=== PATIENT | female | born 1990 | race Caucasian/White ===

== ENCOUNTER 2024-01-10 19:21 | Inpatient (IN) | payer BC, SELFPAY ==
[2024-01-10 19:29] VITALS: BMI 42.2
[2024-01-10 19:43] VITALS: BP 139/83; PULSE 90; RESP 16; TEMP 36.5; O2SAT 97
[2024-01-10] MEDS: Lactated Ringers 1,000 ML 50 ML IV (20:00)
[2024-01-10 20:22] LABS: Absolute Lymphocyte Count 1.81 X10^3/uL (0.83-4.51); Absolute Neutrophil Count 8.4 X10^3/uL (2.0-7.7); Basophil# 0.03 X10^3/uL; Basophil% 0.3 % (0-1); Eosinophil# 0.03 X10^3/uL; Eosinophils% 0.3 % (0-5); Hematocrit 31.5 % (37-47); Hemoglobin 10.1 g/dL (12.0-15.0); Lymphocyte # 1.81 X10^3/ul (0.83-4.51); Lymphocyte % 16.6 % (19-41); Mean Corp Hgb Conc 32.1 g/dL (32-36); Mean Corpuscular Hgb 28.3 pg (27.0-32.0); Mean Corpuscular Volume 88.2 fL (81-99); Mean Platelet Vol. 10.8 fl (6.2-12.0); Monocyte# 0.66 X10^3/uL; NRBC Flagged by Analyzer 0 % (0-5); Neutrophil # 8.35 X10^3/uL (2.7-7.7); Neutrophil % 76.3 % (47-70); Platelet Count 265 K/mm3 (150-450); RBC Distribution Width CV 13.4 % (11.6-14.6); RBC Distribution Width SD 43.1 fl (35.1-43.9); Red Blood Count 3.57 M/mm3 (4.2-5.4); White Blood Count 10.9 K/mm3 (4.4-11.0)
[2024-01-10 20:54] VITALS: BP 133/86; PULSE 88; RESP 16; TEMP 36.2; O2SAT 97
[2024-01-10] MEDS: NIFEdipine 30 MG Tablet PO (20:55)
[2024-01-10] MEDS: miSOPROStol 25 MCG TABLET PO (20:55)
[2024-01-10 21:13] LABS: Syphilis Antibodies Non-reactive
[2024-01-10] MEDS: CHLORHEXIDINE GLUC 2% CLOTH 1 EACH TOWELETTE TOPICAL (21:53)
[2024-01-10 22:03] VITALS: RESP 16; TEMP 36.4
[2024-01-10 22:05] VITALS: BP 142/88; PULSE 82
[2024-01-11] VITALS (77 sets, daily range): BP systolic 106–175; BP diastolic 58–94; PULSE 70–104; RESP 16–18; TEMP 36.3–37.8; O2SAT 92–100
[2024-01-11] MEDS: Oxytocin 15 Units/NS 250ml 15 UNITS/250 ML IV.SOLN 2 UNITS IV (01:55)
[2024-01-11] MEDS: Penicillin G Pot 5,000,000 UNITS in 0.9% Normal Saline (100mL MB+) 100 ML 150 UNITS IV (07:44)
--- NOTE | 2024-01-11 08:20 | HP.PCM.OB_ITS ---
HPI - General General Date of Admission: 01/10/24 Date of Service: 01/10/24 Chief Complaint: induction of labor HPI Narrative YAKOV SEYMOUR, is a 33 F who presents 1 para 0 who presented on 01/10/2024 at 37-1/7 weeks for induction of labor due to chronic hypertension on Procardia. is complicated to date by chronic hypertension, maternal obesity, history of liver resection and history of genital herpes. She denies any vaginal bleeding or leaking of fluid. She has had good movement. Past medical history significant for liver adenoma, anxiety, chronic hypertension, genital herpes with no current outbreak, PCOS and eczema Maternal Data Information Final RADHA: 01/30/24 Gestational age: 37 1/7 [facility] Medical History (Updated 01/11/24 @ 08:[address] Charito Capellan MD) History of blood transfusion Genital herpes affecting Infertility Liver disease Anxiety Chronic hypertension Home Medications ?Medication ?Instructions ?Recorded ?Last Taken ?Type aspirin 81 mg capsule 81 mg PO DAILY 01/10/24 Unknown History ferrous sulfate 325 mg (65 mg 325 mg PO DAILY /anemia 01/10/24 Unknown History iron) tablet (Feosol) nifedipine 60 mg tablet,extended 60 mg PO DAILY hypertension 01/10/24 01/09/24 22:00 History release 60 mg [id number] 1 mg tab PO DAILY 01/10/24 01/09/24 22:00 History tablet 1 TAB valacyclovir 500 mg tablet 500 mg PO BID HSV 01/10/24 Unknown History Allergy/AdvReac Type Severity Reaction Status Date / Time Latex, Natural Rubber Allergy Itching Verified 01/10/24 19:31 Surgical History (Updated 01/10/24 @ 20:10 by Xochilt Doan) History of surgery Social History Smoking Status: Never smoker History Elective abortions Hx Para 0 Spontaneous abortions Hx # Term Pregnancies Ectopic pregnancies Hx # Pregnancies Multiple births # of living children ROS Constitutional Constitutional: Denies fatigue, fever(s) or malaise Eyes Eyes: Denies change in vision ENT HEENT: Denies dizziness or headache(s) Cardiovascular Cardiovascular: Denies chest pain, dyspnea or lightheadedness Respiratory/Chest Respiratory/Chest: Denies cough or dyspnea Gastrointestinal Gastrointestinal: Denies change in bowel habits Genitourinary Genitourinary: Denies burning urination or genital lesions Integumentary Integumentary: Denies rash Neurologic Neurologic: Denies confusion, dizziness, headache(s), numbness or weakness Vital Signs Vital Signs Vital Signs: 01/10/24 19:43 01/10/24 19:43 01/10/24 19:43 Temperature Temperature Source Pulse Rate 90 Respiratory Rate Blood Pressure 139/83 H BP Systolic 139 BP Diastolic 83 Pulse Ox 97 01/10/24 19:43 01/10/24 19:43 01/10/24 19:43 Temperature 97.7 F L Temperature Source Temporal Pulse Rate Respiratory Rate 16 Blood Pressure BP Systolic BP Diastolic Pulse Ox 01/10/24 20:54 01/10/24 20:54 01/10/24 20:54 Temperature Temperature Source Temporal Pulse Rate 88 Respiratory Rate Blood Pressure 133/86 H BP Systolic 133 BP Diastolic 86 Pulse Ox 01/10/24 20:54 01/10/24 20:54 01/10/24 20:54 Temperature 97.2 F L Temperature Source Pulse Rate Respiratory Rate 16 Blood Pressure BP Systolic BP Diastolic Pulse Ox 97 01/10/24 22:03 01/10/24 22:03 01/10/24 22:03 Temperature 97.6 F L Temperature Source Temporal Pulse Rate Respiratory Rate 16 Blood Pressure BP Systolic BP Diastolic Pulse Ox 01/10/24 22:05 01/10/24 22:05 01/11/24 01:26 Temperature Temperature Source Temporal Pulse Rate 82 Respiratory Rate Blood Pressure 142/88 H BP Systolic 142 BP Diastolic 88 Pulse Ox 01/11/24 01:26 01/11/24 01:26 01/11/24 01:28 Temperature 97.9 F Temperature Source Pulse Rate 79 Respiratory Rate 16 Blood Pressure BP Systolic BP Diastolic Pulse Ox 01/11/24 01:28 01/11/24 01:30 01/11/24 01:30 Temperature Temperature Source Pulse Rate 76 Respiratory Rate Blood Pressure 137/80 H BP Systolic 137 BP Diastolic 80 Pulse Ox 98 01/11/24 02:14 01/11/24 02:14 01/11/24 02:14 Temperature Temperature Source Temporal Pulse Rate 85 Respiratory Rate Blood Pressure 130/80 H BP Systolic 130 BP Diastolic 80 Pulse Ox 01/11/24 02:14 01/11/24 02:14 01/11/24 02:14 Temperature 97.8 F Temperature Source Pulse Rate Respiratory Rate 16 Blood Pressure BP Systolic BP Diastolic Pulse Ox 96 01/11/24 04:15 01/11/24 04:15 01/11/24 04:15 Temperature 97.4 F L Temperature Source Temporal Pulse Rate Respiratory Rate 16 Blood Pressure BP Systolic BP Diastolic Pulse Ox 01/11/24 04:17 01/11/24 04:17 01/11/24 04:17 Temperature Temperature Source Pulse Rate 85 Respiratory Rate Blood Pressure 127/68 H BP Systolic 127 BP Diastolic 68 Pulse Ox 95 01/11/24 05:06 01/11/24 05:06 01/11/24 05:06 Temperature Temperature Source Temporal Pulse Rate 79 Respiratory Rate 16 Blood Pressure BP Systolic BP Diastolic Pulse Ox 01/11/24 05:06 01/11/24 05:06 01/11/24 05:07 Temperature 98.4 F Temperature Source Pulse Rate Respiratory Rate Blood Pressure 120/85 H BP Systolic 120 BP Diastolic 85 Pulse Ox 95 01/11/24 05:07 01/11/24 06:27 01/11/24 06:27 Temperature Temperature Source Pulse Rate 81 81 Respiratory Rate Blood Pressure BP Systolic BP Diastolic Pulse Ox 97 01/11/24 06:28 01/11/24 06:28 01/11/24 06:28 Temperature Temperature Source Temporal Pulse Rate 82 Respiratory Rate Blood Pressure 128/82 H BP Systolic 128 BP Diastolic 82 Pulse Ox 01/11/24 06:28 01/11/24 06:28 01/11/24 07:28 Temperature 97.7 F L Temperature Source Pulse Rate Respiratory Rate 16 Blood Pressure 134/89 H BP Systolic 134 BP Diastolic 89 Pulse Ox 01/11/24 07:28 01/11/24 07:28 01/11/24 07:28 Temperature Temperature Source Temporal Pulse Rate 91 Respiratory Rate 16 Blood Pressure BP Systolic BP Diastolic Pulse Ox 01/11/24 07:28 Temperature 97.8 F Temperature Source Pulse Rate Respiratory Rate Blood Pressure BP Systolic BP Diastolic Pulse Ox Weight Weight: 108.182 kg Body Mass Index (BMI) 42.2 Physical Exam Const alert and no apparent distress General Appearance: cooperative HEENT normocephalic Resp normal respiratory effort Cardio regular rate GI soft to palpation GI Narrative: gravid, nontender, appropriate for gestational age Extremity no calf tenderness General Extremity: edema Skin no wounds Rashes: No rashes noted Psych activity/motor behavior normal Labs Labs Labs: Blood Type AB POSITIVE Antibody Screen NEGATIVE Hct 31.5 % (37-47) L Hgb 10.1 g/dL (12.0-15.0) L Syphilis Total Ab Non-reactive Assessment & Plan (1) 37 weeks gestation of : (2) High-risk in third trimester: (3) Nulliparity: (4) Chronic hypertension in obstetric context, antepartum: (5) Maternal obesity syndrome in third trimester: (6) BMI 40.0-44.9, adult: (7) Genital herpes affecting in third trimester:
[2024-01-11] MEDS: Ondansetron 4 MG/2 ML Vial IV (08:25)
[2024-01-11] MEDS: LACTATED RINGERS 500 ML 999 ML IV ×3 (08:45→10:38)
[2024-01-11] MEDS: CHLORHEXIDINE GLUC 2% CLOTH 1 EACH TOWELETTE TOPICAL (09:00)
[2024-01-11] MEDS: fentaNYL-bupivacaine (epidural) 100 ML BAG EPIDURAL ×2 (09:48→14:17)
[2024-01-11] MEDS: Lactated Ringers 1,000 ML 200 ML IV ×2 (09:56→15:15)
[2024-01-11] MEDS: Amnioinfusion- 0.9% NS 1,000 ML IV.SOLN. 1000 ML INTRA-UTER (11:09)
[2024-01-11] MEDS: Penicillin G 3,000,000 Units 50 ML 100 UNITS IV (11:59)
[2024-01-11] MEDS: Oxytocin 15 Units/NS 250ml 15 UNITS/250 ML IV.SOLN 83 UNITS IV (15:48)
--- NOTE | 2024-01-11 16:14 | EX.PCM.OBRPT ---
Maternal Data Information Final RADHA: 01/30/24 Gestational age: 37&2 Vaginal Delivery Maternal Presentation Maternal Presentation: Medically Indicated Induction Type of Induction: Pitocin, Jack Bulb and Amniotomy Medical Reason for Induction: Maternal Medical Condition: list: (Chronic hypertension in ) Operative Information Date of Procedure: 01/11/24 Pre-Operative Diagnosis: Chronic hypertension in on medication Post-Operative Diagnosis: Same Surgery / Procedure Performed: Spontaneous Vaginal Delivery Type of Anesthesia: Epidural Estimated Blood Loss: 350ml Findings Description of Procedure: Patient prepped & draped when C/C/+2. She pushed well to deliver the head. Tight nuchal cord clamped & cut. head gently guided to allow delivery of anterior and posterior shoulders. No excess traction placed on head. Body delivered. Placenta delivered with gentle traction and good uterine tone obtained. Presentation: CANDE Amniotic Membrane Rupture Type: Artificial Amniotic Fluid Description: Clear Placental Delivery Description: Expressed Placenta Disposition: [facility] Specimen(s) Removed: Placenta Cord Vessel Description: 3 Vessels Cord Entanglement: Around neck x 1, tight Nuchal Cord Compression: With compression A Gender: Male (1 minute): 8 (5 minute): 9 Delayed Cord Clamping: No Post Vaginal Delivery Medications Given After Delivery: IV Pitocin Episiotomy Description: None Laceration: 2nd degree (perineal - repaired with 3-0 vicryl) Complication Complications: None
[2024-01-11] MEDS: Acyclovir 200 MG Capsule 400 MG PO (22:32)
[2024-01-11] MEDS: NIFEdipine 60 MG Tablet PO (22:32)
[2024-01-12] VITALS (9 sets, daily range): BP systolic 127–138; BP diastolic 63–81; PULSE 82–103; RESP 14–16; TEMP 36.2–37.2; O2SAT 91–97
[2024-01-12] MEDS: Acyclovir 200 MG Capsule 400 MG PO ×3 (06:32→22:18)
--- NOTE | 2024-01-12 08:42 | PCM.PN.OB ---
Subjective Subjective Doing well. Ambulating without difficulty. Voiding. Pain controlled. Breast feeding. BP stable on Procardia Objective Data Objective Data Vital Signs: Vital Signs Temp Pulse Resp BP Pulse Ox O2 Del Method 97.7 F L 90 16 130/81 H 95 Room Air 01/12/24 07:39 01/12/24 07:39 01/12/24 07:39 01/12/24 07:39 01/12/24 07:39 01/12/24 07:39 Oxygen Delivery Method Room Air Weight: 108.182 kg Body Mass Index (BMI) 42.2 Intake & Output: Intake and Output for Last 24 Hours 01/10/24 01/11/24 01/12/24 23:59 23:59 23:59 Intake Total 4416.17 / 4416.17 Output Total 850 / 850 500 / 500 Balance 3566.17 / 3566.17 -500 / -500 Lab / Micro Data 01/10/24 20:00 Physical Exam Const alert and no apparent distress Narrative: Fundus firm, below umbilicus. Assessment & Plan (1) (spontaneous vaginal delivery): (2) Chronic hypertension in obstetric context, antepartum: (3) BMI 40.0-44.9, adult: PLAN: Plan Routine care
--- NOTE | 2024-01-12 09:15 | CASEMGMT ---
Social Work Assessment Labor and Delivery Unit Patient Address: [address] [place] [address] Phone number: [phone] Date of Referral: 01/11/24 Time of Referral:? 1827 Referred By: Treasure Garcia Date of Intervention: ?01/12/24? Time of Intervention:? 09 Reason for Referral:? anxiety, social issues, FOB not involved Sw compelted chart review and acknowledges social work consult. Sw presented to bedside and introduced self to mother of baby (SCARLETT- Holly). Sw explained sw role during hospitalization and completed psychosocial assessment. History obtained from: medical records, MOB Household composition:SCARLETT states that she is currently residing with maternal grandma, and baby will also reside with them when ready for discharge. MOB denies any issues or concerns with housing at this time. Patient's parent/guardian status:? ?MOB reports that she and father of baby (FOB- name unknown, MOB not willing to discuss) are not in relationship, nor were they. MOB states that she really wanted to have a baby, and asked FOB if he would have a baby with her. FOB was receptive to this, MOB became . MOB states that FOB does not have any intentions of co-parenting with her and she does not expect him to. MOB denies any abuse, domestic violence or intimate partner violence. Medical History: ?SCARLETT is 33 year old female who is 1, para 0- now 1 following labor and delivery of . Educational Status:? SCARLETT completed high school and has an associates degree in [employer]. MOB denies any issues or concerns with reading, learning or comprehension. Financial Status: SCARLETT is gainfully employed at [employer], she states that she is able to take 10 weeks off of work paid. Supplies:?? SCARLETT has obtained all necessary baby supplies, including: car seat, safe sleep space, clothes, diapers and wipes. Childcare/Caregiver(s):? SCARLETT reports that she will be the primary caregiver to baby, when she needs assistance or childcare her mom will be able to help her. Transportation:?? NO barriers Programs/Agencies Involved: ???SCARLETT is not connected to any community agencies that assist her financially. SCARLETT has private insurance. Children Services/Legal Issues:?No history of involvement, no issues or concerns warranting referral to be made at this time. ?? Behavioral Health Issues: ??Mental Health History:?SCARLETT has been diagnosed with anxiety. MOB is not prescribed any medications that help her manage her symptoms. MOB states that her anxiety is mostly situational from when she was younger. MOB states that her anxiety does not impact her daily life. ?? Substance Use History:?MOB denies substance use prior to and during . ? Family History:?No family history of substance use or significant mental health diagnoses. ? Drug Screens: ??No drug screens observed during chart review. Family/Social Stressors:? SCARLETT denies any issues or concerns at this time. Support Systems: MOB identifies her mom as her biggest support person. Depression/Shaken Baby/Safe Sleeping:? Sw educated MOB on signs and symptoms of baby blues and depression. MOB expressed understanding. Maternal grandma stated that she would be able to recognize if MOB were struggling and she would know how to help and support her. Sw educated MOB on shaken baby prevention and ABCs of safe sleep. MOB expressed understanding. ASSESSMENT:? MOB and baby admitted following labor and delivery. SCARLETT was observed to have a lot of support found in her mom and her two sisters. MOB was observed providing loving and appropriate hands on care of . MOB made and maintained eye contact throughout completion of assessment. MOB states that she has everything she needs for baby PLAN:? MOB and baby to be discharged when medically ready. ?No other services requested or indicated. Doug Alvarado, INTERNATIONAL SOURCING MANAGER, CYCLE SPECIALIST
[2024-01-12] MEDS: NIFEdipine 60 MG Tablet PO (22:17)
[2024-01-13] VITALS (7 sets, daily range): BP systolic 132–159; BP diastolic 68–80; PULSE 75–91; RESP 16–18; TEMP 36.2–36.5; O2SAT 92–95
--- NOTE | 2024-01-13 08:22 | PCM.DC.SUM ---
Providers Date of Admission: 01/10/24 Primary Care Physician: Dr. Marlon Nobles MD Reason For Visit: VAGINAL Diagnosis Discharge Diagnosis (1) (spontaneous vaginal delivery): Status: Acute Code(s): O80 - Encounter for full-term uncomplicated delivery (2) Chronic hypertension in obstetric context, antepartum: Status: Acute Code(s): O10.919 - Unspecified pre-existing hypertension complicating , unspecified trimester (3) BMI 40.0-44.9, adult: Status: Acute Code(s): Z68.41 - Body mass index [BMI] 40.0-44.9, adult Medications at Discharge Home Medications ferrous sulfate 325 mg (65 mg iron) tablet (Feosol) 325 mg PO DAILY /anemia 01/10/24 nifedipine 60 mg tablet,extended release 60 mg PO DAILY hypertension 01/10/24 [id number] 1 mg tablet tab PO DAILY 01/10/24 valacyclovir 500 mg tablet 500 mg PO BID HSV 01/10/24 Hospital Course Operations None Procedures None Summary of Care Provided Minutes Spent on Discharge: 15 Hospital Course: Patient had . Hospital course was uneventful. Physical Exam Narrative Patient seen at bedside. . Ambulating and voiding without difficulty. Denies any headache, vision changes, SOB, or CP. Desires discharge home today. Const alert and no apparent distress General Appearance: cooperative and comfortable Exam Limitations: no limitations HEENT normocephalic Eyes General Eye: normal appearance of both eyes Neck full ROM General: normal visual inspection Chest Chest: symmetrical chest wall rise Resp normal respiratory effort and normal air movement Effort and Inspection: symmetric chest movement Auscultation: clear to auscultation bilaterally Cardio regular rate and regular rhythm GI normal to inspection, nondistended, normoactive bowel sounds Back/Spine normal ROM Extremity full ROM and no calf tenderness General Extremity: normal exam except as noted Skin no rashes or lesions noted Neuro CN's II-XII intact bilaterally Psych mental status grossly normal Weight / BMI Weight Weight: 238 lb 8 oz Body Mass Index (BMI) 42.2 ABG / Lab / Microbiology Data 01/10/24 20:00 D/C Instructions Discharge Diet: No restrictions May resume sexual activity in: 6-8 weeks Weight Bearing Status: Weight bearing as tolerated Call your doctor if you observe: Fever of 101 or Higher, Inability to urinate, Using more than 1 pad per hour, Shortness of breath, Chest pain, Calf discomfort and Uncontrolled pain Please Follow Up With: Esme Jeong CNM When: 2 weeks virtual visit/ 6 weeks in office Meaningful Use Info Meaningful Use Meaningful Use Diagnoses (Choose all that apply): None applicable Ischemic Stroke Statin Dosing Therapy Reference: STATIN DOSE THERAPY REFERENCE: * Patients > 75 years receive moderate or high dose statin therapy. * Patients 75 years or YOUNGER should receive HIGH intensity statin dose unless contraindicated. You will be required to document reason for non-treatment if statin daily dose does not meet guidelines. HIGH DOSE STATIN THERAPY DAILY Atorvastatin > than or = to 40 mg Rosuvastatin > than or = to 20 mg Amlodipine + Atorvastatin > than or = to 2.5/40 mg Ezetimibe + Simvastatin 10/80 mg Simvastatin 80mg Discharge Plan Admission Admit Date/Time: 01/10/24 19:21 Primary Reason for Your Visit: Labor and Delivery Attending Provider: Treasure Garcia Primary Care Provider: Marlon Nobles Discharge Orders/Prescriptions Prescriptions: Continued valacyclovir 500 mg tablet 500 mg PO BID nifedipine 60 mg tablet extended release 60 mg PO DAILY [id number]-[id number] 1 mg tablet PO DAILY ferrous sulfate [Feosol] 325 mg (65 mg iron) tablet 325 mg PO DAILY Discontinued aspirin 81 mg capsule 81 mg PO DAILY Referrals / Follow Up: Esme Jeong CNM [Med Staff - [facility]] - Marlon Nobles MD [Primary Care Provider] - Disposition Disposition (needs filled in before D/C Order can be placed): Home, Self Care
[2024-01-13] MEDS: Acyclovir 200 MG Capsule 400 MG PO (08:56)
== END 2024-01-13 12:40 | disposition home or self-care (01) | DRG 806 ==
PROVIDERS: Obstetrics & Gynecology; Admitting Provider Obstetrics & Gynecology; PCP Family Medicine; Visit Provider Obstetrics & Gynecology
DX: O10.02 Pre-existing essential hypertension complicating childbirth (principal); Z37.0 Single live birth; O98.32 Other infections with a predominantly sexual mode of transmission complicating childbirth; O26.03 Excessive weight gain in pregnancy, third trimester; O69.1XX0 Labor and delivery complicated by cord around neck, with compression, not applicable or unspecified; Z3A.37 37 weeks gestation of pregnancy; Z79.899 Other long term (current) drug therapy; A60.00 Herpesviral infection of urogenital system, unspecified; O70.1 Second degree perineal laceration during delivery
CPT/HCPCS: 59025; 59050; 85025; 86780; 86850; 86900; 86901; 99221; J7030; J7120; G0378; J2405